=== PATIENT | female | born 1980 | race Caucasian/White ===

== ENCOUNTER 2021-03-12 18:21 | Emergency (ER) | payer MEDICAID ==
[~2021-03-12] VITALS: Ht 162.6 cm; Wt 93.7 kg
[2021-03-12 19:30] LABS: BASOPHILS % (AUTO) 1 % (0-1); EOSINOPHILS % (AUTO) 1 % (1-7); LYMPHOCYTES % (AUTO) 27 % (22-44); MEAN CORPUSCULAR HEMOGLOBIN 34.9 pg (27.0-34.8); MEAN CORPUSCULAR HGB CONC 34.9 g/dL (32.4-35.8); MEAN PLATELET VOLUME 7.5 fL (7.4-10.4); MONOCYTES % (AUTO) 7 % (2-9); NEUTROPHILS % (AUTO) 64 % (42-75); PLATELET COUNT 257 x10^3/uL (130-400); RED BLOOD COUNT 4.36 x10^6/uL (3.82-5.3); RED CELL DISTRIBUTION WIDTH 14.2 % (9.6-15.2)
[2021-03-12] MEDS ORDERED: ACETAMINOPHEN 500 MG TABLET PO ONE (19:30)
[2021-03-12 19:37] LABS: ANION GAP 6 mmol/L (5-15); CALCIUM 8.7 mg/dL (8.5-10.1); CHLORIDE 108 mmol/L (98-107); CREATININE 0.84 mg/dL (0.55-1.02)
[2021-03-12 19:40] LABS: MD NO
[2021-03-12] MEDS ORDERED: ACETAMINOPHEN 500 MG TABLET ONE (19:56)
[2021-03-12 19:57] LABS: MICROSCOPIC INDICATED
--- NOTE | 2021-03-12 20:17 | NUR ---
PT UP TO AMBULATE TO BATHROOM WALKED WITH STEADY GAIT AND GOOD BALANCE RETURNED SAFELY TO BED NO SIGNS OR SYMPTOMS OF ACUTE DSITRESS NOTED RESPIRATIONS EVEN AND UNLABORED DENIES NEED AT THIS TIME. CALL LIGHT WITHIN REACH
[2021-03-12 21:50] VITALS: BP 131/56
--- NOTE | 2021-03-12 21:50 | NUR ---
OB AT BEDSIDE, PT UPDATED ON PLAN OF CARE. PT TO DC TONIGHT, THEN RETURN ON MONDAY FOR RECHECK WITH [facility] AFTER 1699. OB PROVIDED PT OFFICE NUMBER AND CONTACT INFORMATION PT VERBALIZES UNDERSTANDING AND AGREEMENT WITH PLAN OF CARE. NO SIGNS OR SYMPTOMS OF ACUTE DSITRESS NOTED RESPIRATIONS EVEN AND UNLABORED
== END 2021-03-12 22:14 | disposition home or self-care (01) ==
LOC: ED 22:05
DX: O20.9 Hemorrhage in early pregnancy, unspecified (principal); R10.2 Pelvic and perineal pain; O26.891 Other specified pregnancy related conditions, first trimester; Z3A.08 8 weeks gestation of pregnancy
CPT/HCPCS: 36415; 76801; 80048; 81001; 82040; 84702; 85025; 86901; 87077; 87086; 87186; 99284

== ENCOUNTER 2021-03-14 12:36 | Day surgery (SDC) | payer OTHER, MEDICAID ==
[~2021-03-14] VITALS: Ht 160 cm; Wt 73.0 kg
--- NOTE | 2021-03-14 12:44 | NUR ---
stefano. report received from [facility]. pt c/o rlq abd pain d/t ectopic . pt was here on monday and found out pt has ectopic . pt denies cp/n/v at this time. pt c/o spotting since monday as well. pt's aox4. resps even and unlabored. bp/spo2 monitors in place. call light within reach.
[2021-03-14] MEDS ORDERED: ONDANSETRON 2MG/ML, 2ML IVPush ONE ×2 (13:00→15:30)
[2021-03-14] MEDS ORDERED: HYDROmorphone 1 MG/ML, 1ML INJ IV ONE (13:00)
[2021-03-14 13:11] LABS: BASOPHILS % (AUTO) 1 % (0-1); EOSINOPHILS % (AUTO) 1 % (1-7); LYMPHOCYTES % (AUTO) 17 % (22-44); MEAN CORPUSCULAR HEMOGLOBIN 34.9 pg (27.0-34.8); MEAN CORPUSCULAR HGB CONC 34.7 g/dL (32.4-35.8); MEAN PLATELET VOLUME 7.8 fL (7.4-10.4); MONOCYTES % (AUTO) 6 % (2-9); NEUTROPHILS % (AUTO) 75 % (42-75); PLATELET COUNT 245 x10^3/uL (130-400); RED BLOOD COUNT 4.34 x10^6/uL (3.82-5.3); RED CELL DISTRIBUTION WIDTH 14.3 % (9.6-15.2)
[2021-03-14] MEDS ORDERED: HYDROmorphone 1 MG/ML, 1ML INJ ONE (13:11)
[2021-03-14] MEDS ORDERED: ONDANSETRON 2MG/ML, 2ML ONE ×3 (13:11→18:13)
[2021-03-14 13:12] LABS: MD NO
--- NOTE | 2021-03-14 13:17 | NUR ---
pt medicated per [facility] for pain/nausea. pt tolerated well.
[2021-03-14 13:18] LABS: ANION GAP 7 mmol/L (5-15); CALCIUM 8.3 mg/dL (8.5-10.1); CHLORIDE 108 mmol/L (98-107)
--- NOTE | 2021-03-14 14:21 | NUR ---
pt in [place] at this time.
[2021-03-14 15:45] VITALS: BP 116/60
--- NOTE | 2021-03-14 15:47 | NUR ---
pt resting in [facility]. pt's aox4. resps even and unlabored. bp/spo2 monitors in place. call light within reach.
--- NOTE | 2021-03-14 15:52 | NUR ---
pt medicated per [facility] for nausea. pt tolerated well.
--- NOTE | 2021-03-14 16:26 | NUR ---
COVID SWAB OBTAINED. THIS RN WALKED TO LAB.
[2021-03-14] MEDS ORDERED: MIDAZOLAM 1 MG/ML, 2ML ONE (16:37)
[2021-03-14] MEDS ORDERED: FENTANYL PF 250 MCG/5ML ONE (16:37)
--- NOTE | 2021-03-14 16:45 | NUR ---
report given to property management coordinator. all questions answered.
[2021-03-14] MEDS ORDERED: hydrALAzine 20 MG/ML, 1ML IV PRN (17:00)
[2021-03-14] MEDS ORDERED: FENTANYL PF 100 MCG/2ML IV PRN (17:00)
[2021-03-14] MEDS ORDERED: PROMETHAZINE 25 MG/ML, 1ML IVPush PRN (17:00)
[2021-03-14] MEDS ORDERED: PLEASE ENTER WEIGHT MC SCH (17:00)
[2021-03-14] MEDS ORDERED: HYDROmorphone 1 MG/ML, 1ML INJ IVPush PRN (17:00)
[2021-03-14] MEDS ORDERED: OXYcodone 5 MG/5 ML ORAL.SOL UDC PO PRN (17:00)
[2021-03-14] MEDS ORDERED: HALOPERIDOL 5 MG/ML IV PRN (17:00)
[2021-03-14] MEDS ORDERED: MEPERIDINE/PF 25MG/0.5ML IVPush PRN (17:00)
[2021-03-14] MEDS ORDERED: LABETALOL 5MG/ML, 20ML IV PRN (17:00)
[2021-03-14] MEDS ORDERED: BUPIVACAINE/PF 0.25% ONE (17:14)
[2021-03-14] MEDS ORDERED: SILVER NITRATE STICK TP ONE (17:14)
[2021-03-14] MEDS ORDERED: EPINEPHRINE 1 MG/ML, 1ML ONE (17:14)
[2021-03-14] MEDS ORDERED: DEXAMETHASONE 4 MG/ML, 1ML ONE (17:28)
[2021-03-14] MEDS ORDERED: BUPIVACAINE/PF-EPI 0.25% 1:200K INFIL ONE (18:05)
[2021-03-14] MEDS ORDERED: KETOROLAC 30 MG/1 ML ONE (18:10)
[2021-03-14] MEDS ORDERED: SUCCINYLCHOLINE 20 MG/ML, 10ML ONE (18:13)
[2021-03-14] MEDS ORDERED: NEOSTIGMINE 1 MG/ML, 10ML ONE (18:13)
[2021-03-14] MEDS ORDERED: ROCURONIUM 10MG/ML,5ML ONE (18:13)
[2021-03-14] MEDS ORDERED: PROPOFOL 10 MG/ML, 20ML ONE (18:13)
[2021-03-14] MEDS ORDERED: CEFAZOLIN 1,000 MG ONE (18:13)
[2021-03-14] MEDS ORDERED: GLYCOPYRROLATE 0.2MG/1ML, 5ML ONE (18:13)
[2021-03-14] MEDS ORDERED: OXYC1TAB14 PO ×2 (18:18→18:21)
[2021-03-14] MEDS ORDERED: IBUP-1223 PO (18:18)
[2021-03-14] MEDS ORDERED: NITR100C56 PO (18:32)
[2021-03-14] MEDS ORDERED: ACETAMINOPHEN 650 MG/20.3 ML UDC ONE (18:38)
[2021-03-14] MEDS ORDERED: OXYcodone 5 MG/5 ML ORAL.SOL UDC ONE (18:39)
[2021-03-14] MEDS ORDERED: MEPERIDINE/PF 25MG/ML,1ML ONE (18:51)
[2021-03-14] MEDS ORDERED: ACETAMINOPHEN 325 MG TABLET PO PRN (19:00)
== END 2021-03-14 23:15 | disposition home or self-care (01) ==
LOC: OR 16:32 → OUT 16:32 → EDSTATUS 17:00 → OUT 23:15 → OR 23:15
PROVIDERS: ATTEND Obstetrics & Gynecology
DX: O00.101 Right tubal pregnancy without intrauterine pregnancy (principal); F17.210 Nicotine dependence, cigarettes, uncomplicated; F12.90 Cannabis use, unspecified, uncomplicated; Z88.8 Allergy status to other drugs, medicaments and biological substances; Z79.899 Other long term (current) drug therapy
CPT/HCPCS: 36415; 59151; 76801; 80048; 84702; 85025; 86850; 86900; 87635; 88305; 96374; 96375; 96376; 99285; J0171; J0330; J0690; J1100; J1170; J1885; J2175; J2250; J2405; J2704; J2710; J3010